=== PATIENT | male | born 1980 | race Two or more races ===

== ENCOUNTER 2022-11-09 20:26 | Emergency (ER) | payer OTHER ==
[2022-11-09 20:33] VITALS: BP 144/79; PULSE 88; RESP 17; TEMP 97.6; BMI 29.2
== END 2022-11-09 23:50 | disposition home or self-care (01) ==
LOC: JERFT 20:26
DX: M46.96 Unspecified inflammatory spondylopathy, lumbar region (principal)
CPT/HCPCS: 72131-TC; 99284-25